=== PATIENT | male | born 1980 | race Caucasian/White ===

== ENCOUNTER 2018-06-29 09:34 | Emergency (ER) | payer SELFPAY ==
[2018-06-29 09:42] VITALS: BP 156/103; PULSE 92; RESP 16; TEMP 37; O2SAT 98; BMI 22.6
--- NOTE | 2018-06-29 11:04 | ED_ITS ---
HPI - GI Bleed General Chief complaint: GI Bleed Stated complaint: blood in stool Time Seen by Provider: 06/29/18 10:54 Source: patient Mode of arrival: ambulatory Limitations: no limitations History of Present Illness HPI Narrative: Patient is a 37-year-old male who presents with rectal bleeding. When he had 1 all bloody episode this morning. No previous history of bloody bowel movements or GI bleeding. No nausea vomiting or fever. No further episodes. Denies any painful bowel movement Related Data Home Medications Medication Instructions Recorded Confirmed omeprazole 20 mg PO DAILY 06/29/18 06/29/18 Allergies Allergy/AdvReac Type Severity Reaction Status Date / Time No Known Drug Allergies Allergy Verified 06/29/18 09:42 Review of Systems Review of Systems GENERAL: Denies chills, fatigue, malaise, fever, sweats, travel HEENT: Denies sinus pain, ear pain, sore throat, difficulty swallowing, neck pain RESPIRATORY: Denies dyspnea, cough, wheezing, hemoptysis, sputum. CARDIOVASCULAR: Denies chest pain, palpitations, orthopnea, edema GASTROINTESTINAL: See HPI : Denies dysuria, frequency, incontinence, hematuria, urinary retention, flank pain. MUSCULOSKELETAL: Denies weakness, joint pain, or bony pain SKIN: No rash, no erythema, no pruritus NEUROLOGIC: Denies weakness, dizziness, headache, numbness, change in speech, confusion PSYCHIATRIC: No concerning psychosocial issues. 12 point review of systems is negative except for those stated above and HPI [facility] Medical History Mild acid reflux (Acute) Social History Smoking Status: Current every day smoker Social History Smoking Status: Current every day smoker Exam Initial Vital Signs Initial Vital Signs: Vital Signs Temperature 98.6 F 06/29/18 09:42 Pulse Rate 92 H 06/29/18 09:42 Respiratory Rate 16 06/29/18 09:42 Blood Pressure 156/103 H 06/29/18 09:42 Pulse Oximetry 98 06/29/18 09:42 GENERAL: Well-appearing, well-nourished and in no acute distress. HEENT: Head atraumatic,EOMI, pupils reactive, face symmetric, moist mucous membranes CARDIOVASCULAR: Regular rate and rhythm without murmurs, rubs or gallops. RESPIRATORY: Breath sounds equal bilaterally, no wheezes rales or rhonchi. ABDOMEN: Soft, nontender. Normoactive bowel sounds all 4 quadrants. No guarding or rebound. RECTAL: No hemorrhoids internal external no gross blood non pain : No CVA tenderness EXTREMITIES: Normal range of motion, no clubbing or edema. Neurovascularly intact NEUROLOGICAL: Alert and oriented x4.Normal gait and speech. Cranial nerves II through XII grossly intact. SKIN: Warm, dry, no laceration, no petechiae, no rashes or lesions. Course Orders Ordered: ED Orders 06/29/18 11:30 Complete Blood Count AUTO DIFF Stat Comprehensive Metabolic Panel Stat Lipase Stat Partial Thromboplastin Time Stat Prothrombin Time INR Stat Vital Signs - 8 hr 06/29/18 09:42 06/29/18 11:27 06/29/18 12:30 Temperature 98.6 F Pulse Rate 92 H 79 66 Respiratory Rate 16 16 18 Blood Pressure 156/103 H 148/87 H Blood Pressure [Left Arm] 139/90 Pulse Oximetry 98 98 100 06/29/18 12:42 Temperature Pulse Rate 67 Respiratory Rate 17 Blood Pressure Blood Pressure [Left Arm] 148/87 H Pulse Oximetry 98 MDM - GI Bleed Lab Data Attestation: I reviewed the patient's lab results. Result diagrams: 06/29/18 11:30 06/29/18 11:30 Lab Results 06/29/18 06/29/18 06/29/18 Range/Units 11:30 11:30 11:30 WBC 13.1 H (4.5-11.0) X10^3/uL RBC 4.34 L (4.5-5.9) X10^6/uL Hgb 15.9 (13.5-17.5) g/dL Hct 45.7 (41-53) % MCV 105.3 H (80-100) fL MCH 36.6 H (26-34) PG MCHC 34.8 (30-36) % RDW 12.8 (11.6-14.8) % Plt Count 220 (150-400) X10^3/uL Neut % (Auto) 73.1 (50-75) % Lymph % (Auto) 20.6 L (25-40) % Dougherty % (Auto) 4.8 (3-14) % Eos % (Auto) 0.6 L (2-4) % Baso % (Auto) 0.9 (0-2) % Neut # (Auto) 9500 H (7397-2025) /uL Lymph # (Auto) 2700 (8300-0656) /uL Dougherty # (Auto) 600 (0-900) /uL Eos # (Auto) 100 (0-450) /uL Baso # (Auto) 100 (0-100) /uL PT 10.5 (10.1-12.7) SECONDS INR 0.9 (0.9-1.3) APTT 27 (26.4-36.2) SECONDS Sodium 140 (137-145) mmol/L Potassium 3.9 (3.4-5.1) mmol/L Chloride 103 (98-107) mmol/L Carbon Dioxide 27 (22-32) mmol/L BUN 9 (9-20) mg/dL Creatinine 0.80 (0.66-1.25) mg/dL Estimated GFR > 60.0 (>60) mL/min BUN/Creatinine Ratio 11.3 (6-22) Glucose 102 H (70-100) mg/dL Calcium 9.8 (8.4-10.2) mg/dL Total Bilirubin 1.0 (0.2-1.3) mg/dL AST 34 (17-59) IU/L ALT 43 (21-72) IU/L Alkaline Phosphatase 114 (38-126) U/L Total Protein 8.0 (6.3-8.2) g/dL Albumin 5.0 (3.5-5.0) g/dL Globulin 3.0 (1.7-4.1) g/dL Albumin/Globulin Ratio 1.7 (1.0-2.8) Lipase 117 (23-300) U/L MDM Narrative Medical decision making narrative: Patient really has no gross blood hemodynamically stable more likely a colitis slight leukocytosis. No further GI bleeding in the ED. Abdomen is soft. At this time I see no need for any imaging. Patient feels ready and Benjie for discharge. discussed warning signs and when to return to the ER Discharge Plan Departure Patient Disposition: Home Clinical Impression: Colitis Discharge Date/Time: 06/29/18 12:46 Interventions: ED Discharge Assessment Last Done: 06/29/18 12:30 Instructions: DI for Colitis Activity Restrictions/Additional Instructions: *You have been diagnosed with colitis *What to do: At this time of bleeding is likely from infection. Blood work is stable. *Continue to take medications as directed *Follow up with your primary care provider in 2-3 days *Return to ER if you should have large multiple bowel movements of blood, increased abdominal pain persistent vomiting or any new, worsening or concerning symptoms Prescriptions: No Action omeprazole 20 mg Capsule,Delayed Release(Dr/Ec) 20 mg PO DAILY RF: 0
[2018-06-29 11:27] VITALS: BP 139/90; PULSE 79; RESP 16; O2SAT 98
[2018-06-29 11:45] LABS: Add Manual Diff / Slide Review NO; Basophils Absolute Auto 100 /uL (0-100); Basophils Percent Auto 0.9 % (0-2); Eosinophils Absolute Auto 100 /uL (0-450); Eosinophils Percent Auto 0.6 % (2-4); Hematocrit 45.7 % (41-53); Hemoglobin 15.9 g/dL (13.5-17.5); Lymphocytes Absolute Auto 2700 /uL (1100-4500); Lymphocytes Percent Auto 20.6 % (25-40); Mean Corpuscular HGB Conc 34.8 % (30-36); Mean Corpuscular Hemoglobin 36.6 PG (26-34); Mean Corpuscular Volume 105.3 fL (80-100); Monocytes Absolute Auto 600 /uL (0-900); Monocytes Percent Auto 4.8 % (3-14); Neutrophils Absolute Auto 9500 /uL (1500-7000); Neutrophils Percent Auto 73.1 % (50-75); Platelet Count 220 X10^3/uL (150-400); Red Blood Cell Count 4.34 X10^6/uL (4.5-5.9); Red Cell Distribution Width 12.8 % (11.6-14.8); White Blood Cell Count 13.1 X10^3/uL (4.5-11.0)
[2018-06-29 11:51] LABS: INR 0.9 (0.9-1.3); Prothrombin Time 10.5 SECONDS (10.1-12.7)
[2018-06-29 11:54] LABS: Alanine Aminotransferase 43 IU/L (21-72); Albumin Globulin Ratio 1.7 (1.0-2.8); Alkaline Phosphatase 114 U/L (38-126); Aspartate Aminotransferase 34 IU/L (17-59); BUN Creatinine Ratio 11.3 (6-22); Blood Urea Nitrogen 9 mg/dL (9-20); Calcium 9.8 mg/dL (8.4-10.2); Carbon Dioxide 27 mmol/L (22-32); Chloride 103 mmol/L (98-107); Estimated Glomerular Filt Rate > 60.0 mL/min (>60); Glucose 102 mg/dL (70-100); HEMOLYSIS < 15 (0-50); Lipase 117 U/L (23-300); PTT Partial Thromboplastin Tim 27 SECONDS (26.4-36.2); Potassium 3.9 mmol/L (3.4-5.1); Sodium 140 mmol/L (137-145)
[2018-06-29 12:30] VITALS: BP 148/87; PULSE 66; RESP 18; O2SAT 100
[2018-06-29 12:42] VITALS: BP 148/87; PULSE 67; RESP 17; O2SAT 98
== END 2018-06-29 12:46 | disposition home or self-care (01) ==
PROVIDERS: Emergency Provider Emergency Medicine
DX: K52.9 Noninfective gastroenteritis and colitis, unspecified (principal)
CPT/HCPCS: 80053; 83690; 85025; 85610; 85730; 99282; 99283